=== PATIENT | female | born 1980 | race Caucasian/White ===

== ENCOUNTER 2022-01-03 15:19 | Emergency (ER) | payer MEDICAID ==
[~2022-01-03] VITALS: Ht 149.9 cm; Wt 54.0 kg
[2022-01-03 16:25] LABS: CLARITY URINE CLEAR (CLEAR); COLOR URINE YELLOW (YELLOW); KETONES URINE NEGATIVE (NEGATIVE); LEUKOCYTE ESTERASE URINE 1+ (NEGATIVE); NITRITE URINE NEGATIVE (NEGATIVE); OCCULT BLOOD URINE 2+ (NEGATIVE); PH URINE 6.5 (4.5-8.0); PROTEIN URINE NEGATIVE (NEGATIVE); SPECIFIC GRAVITY URINE 1.015 (1.005-1.030); UROBILINOGEN URINE 0.2 E.U./dL (0.2-1.0)
[2022-01-03] MEDS ORDERED: KETOROLAC 60MG/2ML VIAL IM ONE (17:00)
[2022-01-03] MEDS ORDERED: CEFP100S5 MT (17:16)
[2022-01-03 18:10] VITALS: BP 126/86
== END 2022-01-03 18:11 | disposition home or self-care (01) ==
LOC: ER 15:23
DX: U07.1 COVID-19 (principal); Z90.49 Acquired absence of other specified parts of digestive tract
CPT/HCPCS: 81003; 87426; 99283; C9803